=== PATIENT | male | born 1970 | race Asian ===

== ENCOUNTER 2022-06-28 09:24 | Outpatient (REF) | payer OTHER, SELFPAY ==
[2022-06-28 10:56] LABS: MANUAL DIFF FLAG NO
[2022-06-28 11:01] LABS: Basophils Absolute Auto 0.1 X10*3/uL (0.0-0.2); Basophils Percent Auto 0.5 % (0-2); Eosinophils Absolute Auto 0.2 X10*3/uL (0.0-0.4); Eosinophils Percent Auto 2.3 % (0-4); Hemoglobin 16.8 g/dl (14.0-18.0); Imm Gran Abs Auto 0.04 X10*3/uL (0.00-0.03); Imm Gran Pct Auto 0.4 % (0.0-0.4); Lymphocytes Absolute Auto 3.5 X10*3/uL (1.2-4.9); Lymphocytes Percent Auto 33.5 % (20-40); Mean Corpuscular HGB Conc 34.3 g/dl (31.0-36.0); Mean Corpuscular Hemoglobin 29.6 pg (27.0-33.0); Mean Corpuscular Volume 86.3 fL (80.0-98.0); Mean Platelet Volume 10.4 fL (9.4-12.4); Monocytes Absolute Auto 0.9 X10*3/uL (0.1-1.2); Monocytes Percent Auto 8.4 % (2-11); Neutrophils Absolute Auto 5.8 x10*3/uL (2.0-8.3); Neutrophils Percent Auto 54.9 % (45-73); Platelet Count 281 X10*3/uL (160-400); Red Blood Count 5.68 X10*6/uL (4.60-5.80); Red Cell Distribution Width 12.2 % (11.0-16.0); White Blood Count 10.5 X10*3/uL (4.8-10.8)
[2022-06-28 11:07] LABS: Estimated Average Glucose 289 mg/dL; Hemoglobin A1c % 11.7 %
[2022-06-28 11:21] LABS: Alanine Aminotransferase 32 U/L (0-40); Albumin Level 3.9 g/dL (3.5-5.0); Alkaline Phosphatase 110 U/L (39-117); Anion Gap 12 (12-20); Aspartate Amino Transferase 18 U/L (5-37); Bilirubin Total 0.7 mg/dL (0.0-1.0); Blood Urea Nitrogen 9 mg/dL (9-16); Calcium 8.9 mg/dL (8.4-10.2); Carbon Dioxide 24 mmol/L (22-29); Chloride 100 mmol/L (96-108); Cholesterol 211 mg/dL; Estimated Glomerular Filt Rate > 60; Glucose Fasting 276 mg/dL (60-99); HDL Cholesterol 25 mg/dL; Potassium 3.6 mmol/L (3.3-5.1); Sodium 132 mmol/L (135-145); Total Protein 7.4 g/dL (6.5-8.0); Triglycerides 575 mg/dL
[2022-06-28 11:47] LABS: Prostate Specific Antigen Scr 0.97 ng/mL (<0.05-4.0)
[2022-06-28 14:08] LABS: Creatinine Urine 52.18 mg/dL; Microalbumin Urine < 5.0 mg/L
[2022-06-28 14:32] LABS: Appearance Urine CLEAR; Color Urine YELLOW; Glucose Urine UA >=1000 MG/DL (NEG); Leukocyte Esterase Urine NEG (NEG); Nitrite Urine NEG (NEG); Specific Gravity - Urine <= 1.005 (1.005-1.025); Urine Blood NEG (NEG); Urine Ketones NEG (NEG); Urine Protein NEG (NEG-TRACE)
[2022-06-28 14:53] LABS: Squamous Epithelial Cell Urine TRACE /LPF
[2022-06-28 14:54] LABS: RBC Urine 0 /HPF (0); WBC Urine 0 /HPF (0-4)
== END 2022-06-28 09:25 | disposition home or self-care (01) ==
LOC: HO.10HDL 09:24
PROVIDERS: Visit Provider Internal Medicine
DX: Z00.00 Encounter for general adult medical examination without abnormal findings (principal); E11.9 Type 2 diabetes mellitus without complications; N40.0 Benign prostatic hyperplasia without lower urinary tract symptoms; Z12.5 Encounter for screening for malignant neoplasm of prostate
CPT/HCPCS: 36415; 80053; 80061; 81001; 81003; 82043; 83036; 84153; 85025

== ENCOUNTER 2023-04-12 09:24 | Day surgery (SDC) | payer OTHER, SELFPAY ==
--- NOTE | 2023-04-11 10:05 | P.CONAN_ITS ---
Documented by User: Dena Borjas NP 04/11/23 10:07 HPI - Anesthesia Eval Consult details Narrative: 52yo M for Colonoscopy [facility] Past Medical History Medical History (Updated 04/11/23 @ 10:06 by Dena Borjas NP) Alopecia Diabetes Social History Social History Advance Directives: No Advance Directives Information Provided: Yes Meds Allergies Allergy/AdvReac Type Severity Reaction Status Date / Time No Known Allergies Allergy Verified 04/11/23 10:06 Home Medications Medication Instructions Recorded Confirmed Last Taken Type finasteride 1 mg tablet mg 04/11/23 Unknown History glipizide 5 mg tablet, extended 10 mg PO BID 04/11/23 04/11/23 Unknown History release 24 hr metformin 500 mg tablet 500 mg PO BID 04/11/23 04/11/23 Unknown History Exam Exam Date and Time: April 11, 2023 1005 Assessment and Plan Assessment Anesthesia Assessment: Chart Reviewed Documented by User: Armaan Blanco MD 04/12/23 09:29 [facility] Past Medical History Medical History (Updated 04/11/23 @ 10:06 by Dena Borjas NP) Alopecia Diabetes Family History Family history of problems with anesthesia: No Surgical History History of Problems with Anesthesia: No Social History Social History Advance Directives: No Advance Directives Information Provided: Yes Meds Allergies Allergy/AdvReac Type Severity Reaction Status Date / Time No Known Allergies Allergy Verified 04/11/23 10:06 Home Medications Medication Instructions Recorded Confirmed Last Taken Type finasteride 1 mg tablet mg 04/11/23 Unknown History glipizide 5 mg tablet, extended 10 mg PO BID 04/11/23 04/11/23 Unknown History release 24 hr metformin 500 mg tablet 500 mg PO BID 04/11/23 04/11/23 Unknown History Exam Airway Mallampati Class: III TM Dist: >3cm Neck ROM: Limited Heart: rrr Lungs: cta Assessment and Plan Assessment Anesthesia Assessment: Anesthesia Plan Discussed Final Anesthetic Review Family History of Problems with Anesthesia: No History of Problems with Anesthesia: No NPO: Yes ASA Class: III Final Preanesthetic Review: No Changes in Pt Med Stat, Meds/Allgs Chart Reviewed, Consent Obtained/Reviewed and Anes Risks/Benef Reviewed Patient Risk: Intermediate Procedure Risk: Low Anesthetic Plan Anesthetic Plan: MAC: and Agree w/ Assess. and Plan Disposition: Standard PACU
[2023-04-12 09:46] VITALS: BP 129/81; PULSE 88; RESP 16; TEMP 36.8; O2SAT 95; BMI 32.5
--- NOTE | 2023-04-12 09:55 | P.HPSUR_ITS ---
Pre-Procedural Eval Section A Date of Service: 04/12/23 Section B Chief Complaint: Encounter for screening for malignant neoplasm of Details of Present Illness: see H&P no changes Relevant Family History (Specify if Yes): No Relevant Social History: None Present Medications: see Short Stay Collaborative assessment Medical History: No relevant PMH History of Previous Operations: No relevant previous surgery Allergies: Allergies Allergy/AdvReac Type Severity Reaction Status Date / Time No Known Allergies Allergy Verified 04/11/23 10:06 Review of Systems Sugical H&P ROS: Negative: Constitution, Cardiovascular, Respiratory, Neurolo gical, Psychiatric, Hem-Onc, Allergic/Immunologic, Gastrointestinal, Genitourinary, Musculoskeletal, Integumentary, Endocrine and Eyes/Ears/Nose/Throat Exam Surgical H&P Exam: Normal: HEENT, Normal: Heart, Normal: Lungs, Normal: Extremities, Normal: Abdomen, Normal: Skin and Normal: Neurological Plan Diagnosis/Plan: Unchanged I have reviewed the history and physical and performed a pertinent physical examination on my patient. No changes have occurred unless specified. Time Spent With Patient Time: Total time managing care of this patient today ____ minutes.
[2023-04-12 10:11] LABS: Glucose, Whole Blood 229 mg/dL (60-115)
[2023-04-12 10:36] VITALS: BP 101/65; PULSE 95; RESP 16; TEMP 36.2; O2SAT 97
--- NOTE | 2023-04-12 10:43 | MHC.SHP ---
Pre-Procedural Eval Section A Date of Service: 04/12/23 The patient is an INPATIENT: No Changes since office visit: No Cold of Flu in the past 2 weeks, No New Medical Problems, No Changes in Medication and No Patient answered all questions The History & Physical has been completed within 30 days and I have reviewed it.: Yes Section B Chief Complaint: Encounter for screening for malignant neoplasm of Allergies: Allergies Allergy/AdvReac Type Severity Reaction Status Date / Time No Known Allergies Allergy Verified 04/11/23 10:06 Plan I have reviewed the history and physical and performed a pertinent physical examination on my patient. No changes have occurred unless specified. Time Spent With Patient Time: Total time managing care of this patient today ____ minutes.
--- NOTE | 2023-04-12 10:44 | PM.OP ---
Brief Operative Note Date of Service: 04/12/23 Pre-op diagnosis: screening Procedure: colonoscopy Surgeon: Dc Albert Anesthesia: MAC Was an House Supervisor used for this Procedure?: No Estimated blood loss (mL): 2 Pathology: other Condition: stable Disposition: PACU
--- NOTE | 2023-04-12 12:11 | OP_ITS ---
DATE OF SERVICE: 04/12/2023 SURGEON: Dc Albert MD INDICATIONS: Colon cancer screening. PREOPERATIVE DIAGNOSIS: POSTOPERATIVE DIAGNOSIS: PROCEDURE PERFORMED: Colonoscopy to the terminal ileum with snare polypectomy. ESTIMATED BLOOD LOSS: COMPLICATIONS: ANESTHESIA: Monitored anesthesia care. ASSISTANTS: SPECIMENS: DESCRIPTION OF PROCEDURE: The history and physical was performed. The risks and benefits of the procedure were explained to the patient. Informed consent was obtained. The patient is placed in the left lateral decubitus position. A digital rectal exam was performed and was found to be normal. The Olympus pediatric video colonoscope was introduced into the rectum and advanced to the cecum without difficulty. The cecum was identified by transillumination, palpation, and identification of ileocecal valve. Examination was performed. The scope was removed. He tolerated the procedure well and was returned to the recovery area in stable condition. FINDINGS: The terminal ileum was normal. The visualized colonic mucosa was within normal limits without evidence of masses or ulcers. Two polyps measuring less than 10 mm were removed with cold snare. These were located at 20 cm and in the rectum. The quality of the prep was fair with some liquid stool coating the mucosa. This was washed and suctioned. No other polyps were identified. Retroflexed examination showed some small internal hemorrhoids. IMPRESSION: Colon polyps. RECOMMENDATION: Follow up the biopsy results. MD RAKESH Mehta/DIONTE / [id number] MTDD
== END 2023-04-12 11:29 | disposition home or self-care (01) ==
PROVIDERS: PCP Internal Medicine; Visit Provider Internal Medicine Gastroenterology
PROC: 0DJD8ZZ Inspection of Lower Intestinal Tract, Via Natural or Artificial Opening Endoscopic (ICD-10-PCS; CPT 45378; principal; 2023-04-12 10:30)
DX: Z12.11 Encounter for screening for malignant neoplasm of colon (principal); K63.5 Polyp of colon; K64.8 Other hemorrhoids; E11.9 Type 2 diabetes mellitus without complications; Z79.84 Long term (current) use of oral hypoglycemic drugs
CPT/HCPCS: 45385; 82947; 88305

== ENCOUNTER 2024-08-04 11:48 | Outpatient (REF) | payer OTHER, SELFPAY ==
[2024-08-04 13:17] LABS: MANUAL DIFF FLAG NO
[2024-08-04 13:26] LABS: Appearance Urine Clear; Color Urine Yellow; Glucose Urine UA >=1000 mg/dL (Negative); Leukocyte Esterase Urine Negative (Negative); Nitrite Urine Negative (Negative); PH 5.5 (5.0-9.0); Specific Gravity - Urine >= 1.030 (1.005-1.025); UMIC TRIGGER UA YES; Urine Blood Negative (Negative); Urine Ketones Negative (Negative); Urine Protein Negative (Neg-Trace)
[2024-08-04 13:35] LABS: Basophils Absolute Auto 0.1 X10*3/uL (0.0-0.2); Basophils Percent Auto 0.6 % (0-2); Eosinophils Absolute Auto 0.3 X10*3/uL (0.0-0.4); Eosinophils Percent Auto 2.5 % (0-4); Hematocrit 46.9 % (42.0-52.0); Imm Gran Abs Auto 0.02 X10*3/uL (0.00-0.03); Imm Gran Pct Auto 0.2 % (0.0-0.4); Lymphocytes Absolute Auto 2.8 X10*3/uL (1.2-4.9); Lymphocytes Percent Auto 28.4 % (20-40); Mean Corpuscular HGB Conc 34.1 g/dl (31.0-36.0); Mean Corpuscular Hemoglobin 29.3 pg (27.0-33.0); Mean Corpuscular Volume 85.9 fL (80.0-98.0); Mean Platelet Volume 10.2 fL (9.4-12.4); Monocytes Absolute Auto 0.8 X10*3/uL (0.1-1.2); Monocytes Percent Auto 7.8 % (2-11); Neutrophils Percent Auto 60.5 % (45-73); Platelet Count 281 X10*3/uL (160-400); Red Blood Count 5.46 X10*6/uL (4.60-5.80); Red Cell Distribution Width 12.7 % (11.0-16.0); White Blood Count 9.9 X10*3/uL (4.8-10.8)
[2024-08-04 13:51] LABS: Bacteria Urine None Seen (None Seen); Estimated Average Glucose 344 mg/dL; Hemoglobin A1c % 13.6 % (<6.0); Hyaline Casts Urine 0-2 /LPF (0-2); RBC Urine 0-2 /HPF (0-2); Squamous Epithelial Cell Urine 0-2 /HPF (0-2); WBC Urine 0-5 /HPF (0-5)
[2024-08-04 14:03] LABS: Creatinine Urine 37.11 mg/dL; Microalbumin Urine < 5.0 mg/L
[2024-08-04 14:06] LABS: Alanine Aminotransferase 11 U/L (0-40); Albumin Level 3.8 g/dL (3.5-5.0); Alkaline Phosphatase 126 U/L (39-117); Anion Gap 13 (12-20); Aspartate Amino Transferase 11 U/L (5-37); Bilirubin Total 0.4 mg/dL (0.0-1.0); Blood Urea Nitrogen 9 mg/dL (9-16); Calcium 9.2 mg/dL (8.4-10.2); Carbon Dioxide 26 mmol/L (22-29); Chloride 97 mmol/L (96-108); Cholesterol 225 mg/dL (<200); Estimated Glomerular Filt Rate > 60; Glucose Random 596 mg/dL (60-115); Potassium 4.3 mmol/L (3.3-5.1); Sodium 132 mmol/L (135-145); Total Protein 7.3 g/dL (6.5-8.0)
[2024-08-04 14:08] LABS: Prostate Specific Antigen Scr 1.41 ng/mL (<0.05-4.0)
[2024-08-04 14:11] LABS: Free T4 (Free Thyroxine) 0.99 ng/dL (0.71-1.85); Thyroid Stimulating Hormone 0.65 uIU/mL (0.32-4.0)
== END 2024-08-04 11:49 | disposition home or self-care (01) ==
LOC: HO.10HDL 11:48
PROVIDERS: Visit Provider Internal Medicine
DX: E11.9 Type 2 diabetes mellitus without complications (principal); R63.4 Abnormal weight loss; Z12.5 Encounter for screening for malignant neoplasm of prostate
CPT/HCPCS: 36415; 80053; 81001; 82043; 82465; 82570; 83036; 84153; 84439; 84443; 85025